=== PATIENT | male | born 1975 ===

== ENCOUNTER 2016-07-13 21:19 | Inpatient (IN) | payer MEDICAID ==
--- NOTE | 2016-07-13 21:50 | ED PDOC ---
HPI: CCC, URI, Sore Throat Time Seen by Provider: 07/13/16 21:38 Chief Complaint (Nursing): ENT Problem Chief Complaint (Provider): epistaxis History Per: Patient Additional Complaint(s): pt w/ hx poorly controlled HTN presents w/ 3h nose bleed from R nare. denies fall, trauma, or URI sx. no h/a, dizziness, blurred vision, cp, sob, palp, dyspnea, easy bruising, numbness, weakness to extremities. states he has been without meds for several weeks because he has not seen pmd. denies asa or blood thinners. Past Medical History Reviewed: Historical Data, Nursing Documentation, Vital Signs Vital Signs: Last Vital Signs Temp 98.2 F 07/13/16 21:22 Pulse 97 H 07/13/16 22:35 Resp 16 07/13/16 22:35 BP 191/113 H 07/13/16 22:35 Pulse Ox 99 07/13/16 23:34 - Medical History PMH: HTN - Family History Family History: States: No Known Family Hx - Social History Current smoker - smoking cessation education provided: No Alcohol: None Drugs: Denies - Home Medications Home Medications: Ambulatory Orders Medication Instructions Recorded No Known Home Med 07/13/16 - Allergies Allergies/Adverse Reactions: Allergies Allergy/AdvReac Type Severity Reaction Status Date / Time No Known Allergies Allergy Verified 07/13/16 21:22 Review of Systems ROS Statement: Except As Marked, All Systems Reviewed And Found Negative ENT: Negative for: Nose Pain, Nose Discharge, Nose Congestion Physical Exam - Reviewed Nursing Documentation Reviewed: Yes Vital Signs Reviewed: Yes - Physical Exam Appears: Positive for: Non-toxic, Uncomfortable Head Exam: Positive for: ATRAUMATIC, NORMAL INSPECTION, NORMOCEPHALIC Skin: Positive for: Normal Color, Warm, DRY Eye Exam: Positive for: EOMI, Normal appearance, PERRL ENT: Positive for: Other (large clot R nare. no apparent bleeding after clot removal. blood tinged teeth and tongue. no blood in post pharynx.) Neck: Positive for: Normal, Painless ROM Cardiovascular/Chest: Positive for: Regular Rate, Rhythm Respiratory: Positive for: CNT, Normal Breath Sounds Gastrointestinal/Abdominal: Positive for: Normal Exam, Bowel Sounds, Soft. Negative for: Tenderness Extremity: Positive for: Other (AV shunt L wrist w/ palpable thrill) Neurologic/Psych: Positive for: Alert, assembly machine set up mechanic II-XII, Oriented, Gait (steady). Negative for: Motor/Sensory Deficits - Laboratory Results Result Diagrams: 07/13/16 22:18 07/13/16 22:18 - ECG O2 Sat by Pulse Oximetry: 99 Medical Decision Making Medical Decision Making: ekg nsr at 95. prolonged QT. critical labs show BUN/creatinine largely elevated. pt is uremic, acidotic w/ bleeding diasthesis. likely acute on chronic renal failure. bleeding controlled with nasal packing. call out to pt' s plugger man Dr. Mckeon. spoke with Dr. Egan who will admit pt to ICU pending dialysis. 2350 BP 179/100 after first dose labetolol. spoke with Dr. Cook for Dr. Mckeon. agrees with repeat Labetolol and amp of bicarb as ordered. will arrange dialysis in AM as potassium is normal at this point. Procedures - Additional Procedures Progress: nasal packing performed in seated position. 7.5cm rhinorocket soaked in sterile water and inserted to R nare. 5cc air insuflated. pt tolerated well. no complications. bleeding controlled. Disposition - Clinical Impression Clinical Impression: Acute on chronic renal failure, Uremia, Epistaxis, Hypertensive emergency - Patient ED Disposition Is Patient to be Admitted: Yes - Disposition Disposition Time: 23:58 Condition: CRITICAL - Pt Status Changed To: Hospital Disposition Of: Inpatient - Admit Certification Admit to Inpatient:: After my assessment, the patient will require hospitalization for at least two midnights. This is because of the severity of symptoms shown, intensity of services needed, and/or the medical risk in this patient being treated as an outpatient. - POA Present On Arrival: None
[2016-07-13] MEDS ORDERED: Labetalol 5 mg/ml Inj 20ML IVP STA ×2 (22:24→23:34)
[2016-07-13 22:31] LABS: ALB/GLOB RATIO 1.3 (1.0-2.1); ALKALINE PHOSPHATASE 62 U/L (38-126); ALT/SGPT 29 U/L (21-72); AST/SGOT 25 U/L (17-59); BILIRUBIN,TOTAL 0.4 mg/dl (0.2-1.3); CALCIUM 7.1 mg/dL (8.4-10.2); CHLORIDE 109 mmol/L (98-107); GLUCOSE,RANDOM 88 mg/dL (75-110); PARTIAL THROMBOPLASTIN TIME 31.9 Seconds (25.6-37.1); POTASSIUM 4.3 MMOL/L (3.6-5.0); SODIUM 140 mmol/l (132-148)
[2016-07-13 22:35] LABS: CARBON DIOXIDE < 5 mmol/L (22-30)
[2016-07-13 22:41] LABS: GFR AFRICAN-AMERICAN 3
[2016-07-13 22:45] LABS: BLOOD UREA NITROGEN 154 mg/dl (9-20)
[2016-07-13 22:51] LABS: BASO # 0.1 K/uL (0.0-0.2); BASO % 0.7 % (0.0-2.0); EOS # 0.1 K/uL (0.0-0.7); EOS % 1.1 % (0.0-4.0); HEMATOCRIT 25.5 % (35.0-51.0); LYMPH # 0.9 K/uL (1.0-4.3); LYMPH % 10.9 % (20.0-40.0); MEAN CELL VOLUME 89.6 fl (80.0-94.0); MEAN CORPUSCULAR HEMOGLOBIN 30.1 pg (27.0-31.0); MEAN CORPUSCULAR HGB CONC 33.5 g/dL (33.0-37.0); MEAN PLATELET VOLUME 10.1 fl (7.2-11.7); MONO # 0.8 K/uL (0.0-0.8); MONO % 9.8 % (0.0-10.0); NEUT # 6.6 K/uL (1.8-7.0); NEUT % 77.5 % (50.0-75.0); RED CELL DISTRIBUTION WIDTH 14.4 % (11.5-14.5); WHITE BLOOD COUNT 8.5 K/uL (4.8-10.8)
[2016-07-13 23:06] LABS: ABG ALLEN TEST YES; ARTERIAL BLOOD GAS HCO3 8.3 mmol/L (21-28); ARTERIAL BLOOD GAS O2 CAPACITY 11.7 mL/dL (16-24); ARTERIAL BLOOD GAS O2 CONTENT 11.6 ML/dL (15-23); ARTERIAL BLOOD GAS PH 7.15 (7.35-7.45); ARTERIAL BLOOD GAS PO2 159 mm/Hg (80-100); ARTERIAL BLOOD HGB O2 SAT 95.3 % (95.0-98.0); HHB 0.8 % (0.0-5.0); METHEMOGLOBIN 2.9 % (0.0-3.0)
[2016-07-13] MEDS ORDERED: Sodium Bicarbonate 7.5% (0.9 MEQ/ML) 50ML INJ IV ONE (23:34)
--- NOTE | 2016-07-14 00:18 | CP.PCM.HP ---
History of Present Illness - History of Present Illness History of Present Illness: PCP: None Uc Architect: Dr Mckeon Chief complaint: Right nose bleed HPI: 41 years old male with hx of HTN and CKD with left AV fistula placed 2 years prior because of Chronic Kidney disease. He comes with a 3 hour hx of bleeding from the right nares. In the ED a right nasal was packed packing. His blood pressure was 210/102mmHg, Lab results showed results BUN 154mg/dl and Creatinine 18, he was also found to be Acidotic with a Bicarb of 5. The patient referred Nocturia, SOB on exertion, Some chest pressure, But no trauma. PMH: HTN; CKD PSH: A-V Fistula at the left wrist SH: Former Smoker; Quit Alcohol > 5years ago; No illegal drug use; Live alone; Works in food preparation FH: no known family hx Allergies: NKDA Present on Admission - Present on Admission Any Indicators Present on Admission: No History of DVT/PE: No History of Uncontrolled Diabetes: No Urinary Catheter: No Decubitus Ulcer Present: No Review of Systems - Constitutional Constitutional: absent: Anorexia, Chills, Fatigue, Fever, Headache - EENT Eyes: Requires Corrective Lenses. absent: Blurred Vision, Floaters, Photophobia , Sees Flashes Ears: absent: Decreased Hearing, Ear Discharge, Ear Pain, Tinnitus Nose/Mouth/Throat: Epistaxis, Sore Throat. absent: Sinus Pain, Sinus Pressure - Cardiovascular Cardiovascular: Chest Pain, Dyspnea. absent: Edema - Respiratory Respiratory: Cough, Dyspnea. absent: Wheezing, Chest Congestion - Gastrointestinal Gastrointestinal: absent: Constipation, Diarrhea, Nausea, Vomiting - Genitourinary Genitourinary: Nocturia, Freq UTI. absent: Dysuria, Flank Pain, Hematuria - Musculoskeletal Musculoskeletal: absent: Back Pain, Muscle Weakness, Myalgias - Integumentary Integumentary: absent: Pruritus, Rash, Skin Ulcer, Sores, Striae, Swelling - Neurological Neurological: absent: Confusion, Focal Weakness, Weakness - Psychiatric Psychiatric: absent: Anxiety, Depression, Panic Attacks - Endocrine Endocrine: absent: Palpitations, Polydipsia, Polyphagia, Polyuria - Hematologic/Lymphatic Hematologic: absent: Easy Bleeding, Easy Bruising Past Patient History - Past Medical History & Family History Past Medical History?: Yes - Past Social History Smoking Status: Former Smoker Chewing Tobacco Use: No Cigar Use: No Alcohol: None Drugs: Denies Home Situation {Lives}: Alone - CARDIAC Hx Hypertension: Yes - PULMONARY Hx Respiratory Disorders: No - NEUROLOGICAL Hx Neurological Disorder: No - HEENT Hx HEENT Problems: No - RENAL Hx Renal Failure: Yes Other/Comment: AV fistula left wrist x 2 years- not being used yet - ENDOCRINE/METABOLIC Hx Endocrine Disorders: No - HEMATOLOGICAL/ONCOLOGICAL Hx Blood Disorders: No Hx Leukemia: No - INTEGUMENTARY Hx Dermatological Problems: No - MUSCULOSKELETAL/RHEUMATOLOGICAL Hx Musculoskeletal Disorders: No - GASTROINTESTINAL Hx Gastrointestinal Disorders: No - GENITOURINARY/GYNECOLOGICAL Hx Genitourinary Disorders: No - PSYCHIATRIC Hx Psychophysiologic Disorder: No Hx Substance Use: No - SURGICAL HISTORY Hx Vascular Access Device: Yes (left wrist) - ANESTHESIA Hx Anesthesia: Yes Hx Anesthesia Reactions: No Meds Allergies/Adverse Reactions: Allergies Allergy/AdvReac Type Severity Reaction Status Date / Time No Known Allergies Allergy Verified 07/13/16 21:22 Physical Exam - Constitutional Appears: No Acute Distress - Head Exam Head Exam: ATRAUMATIC, NORMAL INSPECTION, NORMOCEPHALIC - Eye Exam Eye Exam: EOMI, Normal appearance Pupil Exam: NORMAL ACCOMODATION, PERRL - ENT Exam ENT Exam: Normal External Ear Exam, Normal Oropharynx Additional comments: Right nostrel with a Nasal Bulb for Epistaxis - Neck Exam Neck exam: Positive for: Full Rom, Normal Inspection. Negative for: Lymphadenopathy, Tenderness - Respiratory Exam Respiratory Exam: Clear to Auscultation Bilateral. absent: Rales, Rhonchi, Wheezes - Cardiovascular Exam Cardiovascular Exam: Gallop, REGULAR RHYTHM, RRR, +S1, +S2. absent: JVD - GI/Abdominal Exam GI & Abdominal Exam: Normal Bowel Sounds, Soft. absent: Organomegaly, Tenderness - Rectal Exam Rectal Exam: Deferred - Extremities Exam Extremities exam: Positive for: full ROM, normal capillary refill, normal inspection. Negative for: pedal edema - Back Exam Back exam: NORMAL INSPECTION. absent: CVA tenderness (L), CVA tenderness (R) - Neurological Exam Neurological exam: Alert, CN II-XII Intact, Oriented x3, Reflexes Normal - Psychiatric Exam Psychiatric exam: Normal Affect, Normal Mood - Skin Skin Exam: Dry, Intact, Normal Color, Warm Results - Vital Signs Recent Vital Signs: Last Vital Signs Temp 98.2 F 07/13/16 21:22 Pulse 85 06/02/17 00:00 Resp 16 07/14/16 00:00 BP 169/109 H 07/14/16 00:00 Pulse Ox 99 07/14/16 00:00 - Labs Result Diagrams: 07/13/16 22:18 07/13/16 22:18 - EKG Data EKG comments: NSR 96/min - Imaging and Cardiology Chest x-ray Status: Report reviewed by me Additional comment: Cardiomegaly No infiltrate Assessment & Plan - Assessment and Plan (Free Text) Assessment: #. Acute on chronic Kidney disease #. hypertensive Urgency #. Anemia #. Metabolic Acidosis #. Epistaxis Plan: 41 years old male with hx of HTN and CKD with left AV fistula placed 2 years prior, because of Chronic Kidney disease, comes with a 3 hour hx of bleeding from the right nares. In the ED his blood pressure was 210/102mmHg, BUN 154mg/dl and Creatinine 18, and he was Acidotic. #. Acute on chronic Kidney disease - Consult Dr Cook Nephrology covering for Dr Nobles/ for Dialysis - IV fluid at 100mls/hr #. Hypertensive Urgency - Patient received Labetalol 20mg IV twice in the ED. - Continue treatment with Oral labetalol 200mg BID/ amlodipine 10mg Stat and daily/ Clonidine 2mg Po BID #. Anemia of chronic kidney disease - follow Iron panel/ Vitamin B2 and folate - Follow HB #. Metabolic Acidosis due to the Renal failure - One ampule of Sodium Bicarbonate given in ED - IV Fluid with 2Amps of Sodium Bicarbonate at 100mls/hr #. Epistaxis caused by the elevated Blod pressure - The right nostres has the Packing - Treat the HTN #. DVT prophylaxis with SCD. Heparin on hold because of the epistaxis #. Code Status: Full - Date & Time Date: 07/14/16 Time: 00:17
[2016-07-14] MEDS ORDERED: Labetalol 5 mg/ml Inj 20ML IVP STA (00:55)
[2016-07-14] MEDS ORDERED: Sodium Chloride 0.9% 1,000 ML IV SCH (01:15)
[2016-07-14] MEDS: Sodium Bicarbonate 100 MEQ in Sodium Chloride 0.45% 1,000 ML IV SCH ×3 (02:12→22:59)
[2016-07-14 04:55] LABS: VENOUS BLOOD GAS BASE EXCESS -20.3 mmol/L (0.0-2.0); VENOUS BLOOD GAS PCO2 20 mmHg (40-60); VENOUS BLOOD PH 7.14 (7.32-7.43)
[2016-07-14 05:42] LABS: CALCIUM 6.9 mg/dL (8.4-10.2)
[2016-07-14 05:58] LABS: IRON 78 ug/dL (49-181)
--- NOTE | 2016-07-14 08:43 | CARD ---
APPROVED REPORT EKG Measurement Heart [id number] <Conclusion> Normal sinus rhythm Prolonged QT Abnormal ECG
--- NOTE | 2016-07-14 10:49 | RAD ---
HISTORY: Hypertension COMPARISON: 06/10/2013. FINDINGS: LUNGS: No active pulmonary disease. PLEURA: No significant pleural effusion identified, no pneumothorax apparent. CARDIOVASCULAR: No radiographic findings to suggest acute or significant cardiovascular disease. OSSEOUS STRUCTURES: No significant abnormalities. VISUALIZED UPPER ABDOMEN: Normal. OTHER FINDINGS: None. IMPRESSION: No active disease. No significant interval change compared to the prior examination(s).
--- NOTE | 2016-07-14 17:14 | CP.CCUPN ---
CCU Subjective - Physician Review Subjective (Free Text): CONCRETER PROGRESS NOTE Patient examined, interim events reviewed, discussed with PMD: 41M with PMH HTN, non-compliant CKD, admitted with c/o nose bleed and uncontrolled BP 210/100. In ER, nasal trumpet placed into R nares for control of bleeding, found to have uremic range BUN and concurrent LUE AVF in place with good bruit and thrill, transferred to ICU for first HD, and BP control. Presently awake, and alert, non-distressed, denies any headaches, N/V, dizziness , vertigo, facial pain, no focal weakness, visual changes, chest discomfort, SOB , palpitations. Afebrile, no fever spikes; BP 162/82 HR 82, 97% SPO2 on RA Allergies: NKDA ROS: as above, no other pertinent negs or positives on 10 system review. PMFSH: all nursing and historical notes reviewed, no new pertinent data relevant to current problems. No other distress noted: EXAM- HEENT: no icterus, pupils equal and reactive NECK: no visible JVD, supple, carotids equal upstroke bilat/no bruits CHEST: decreased BS bases, no wheezes HEART: regular, distant, S1S2, no murmur audible, no rubs. ABD: soft, no increased distention, no focal tenderness, no HSM. BS hypoactive , EXT: no peripheral/ digital cyanosis, no calf tenderness or palpable cords, distal pulses intact and symmetrical, LUE AVF. NEURO: no gross focal motor deficits SKIN: no rashes LABS: WBC= 8.5 HGB= 8.5 PLTs= 196K Na= 142 K= 4.0 HCO3= 6 BUN/Cr= 160/18.3 BS= 82 MAJOR PROBLEMS NOW: 1. 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 Uncontrolled HTN 3. Chronic Disease Anemia PLAN: 1. Patient realizes need now for acute HD, arrangements being made. 2. STAT anti-HTN meds given in ER noted, now remains on triple therapy with labetalol, Clonidine and Amlodipine. Expect BP to be lowered more post HD today. 3. Once MAP down to 100-110, and has tolerated HD, will transfer to Step down bed. 4. No need for PRBCs at this time.
[2016-07-14 17:36] LABS: FOLATE 6.5 ng/mL
[2016-07-14] MEDS ORDERED: Labetalol 5mg/ml (4ml) IVP PRN (22:25)
[2016-07-14] MEDS: Labetalol 5 mg/ml Inj 20ML IVP PRN (23:00)
[2016-07-15] MEDS: Labetalol 5 mg/ml Inj 20ML IVP PRN (06:07)
[2016-07-15 06:55] LABS: MEAN CELL VOLUME 86.6 fl (80.0-94.0); MEAN CORPUSCULAR HEMOGLOBIN 28.9 pg (27.0-31.0); MEAN CORPUSCULAR HGB CONC 33.3 g/dL (33.0-37.0); RED CELL DISTRIBUTION WIDTH 13.9 % (11.5-14.5); WHITE BLOOD COUNT 7.3 K/uL (4.8-10.8)
[2016-07-15 07:22] LABS: ALB/GLOB RATIO 1.3 (1.0-2.1); BILIRUBIN,TOTAL 0.5 mg/dl (0.2-1.3); CALCIUM 6.8 mg/dL (8.4-10.2); TOTAL PROTEIN 6.6 G/DL (6.3-8.2)
--- NOTE | 2016-07-15 07:36 | CP.PCM.CON ---
History of Present Illness - History of Present Illness History of Present Illness: REASONS FOR CONSULT : ADVANCED CKD IN NEED FOR URGENT HD SEVERE MET ACIDOSIS WITH BICARB 6 PT IS WELL KNOWN TO US WHO HAS BEEN PREPARED FOR HD HPI: 32M with PMHxof ESRD, Dialysis, HTN, asthma, and cardiomyopathy presented to the ER due to left knee pain. He states that he was discharged on Sunday from [facility] [place] and was told that he had ruptured both of his patellar tendons. He was told to follow up with Dr. Medina as an outpatient for his surgery and was given pain medications prior to discharge. He states that on Sunday he was icing his knees to help with the pain. He states that he had to take off his knee braces to ice them and he believes that he didn't tighten the left one correctly. He then states that later that day he began to have severe pain even though he barely walked or put weight on his knees. Sunday he states he was bed bound due to the pain and thus, missed his Sunday scheduled Dialysis. He reports the pain as localized to the knees bilaterally with the left being more painful. Patient is scheduled outpatient surgery next week with Dr Medina. Denies Chest pain, sob, palpitations, fever, chills weakness, numbness, tingling, nausea or vomiting. PMHx- ESRD, Dialysis, HTN, asthma, and cardiomyopathy PSHx- AICD, Fistula on left arm for dialysis Meds: As per MAR Allergies- NKDA Soc Hx- denies tobacco, alcohol , and drug use. Lives with [facility], [place] and works in [employer] F[employer]x- HTN Past Patient History - Past Medical History & Family History Past Medical History?: Yes - Past Social History Smoking Status: Never Smoked - CARDIAC Hx Cardiac Disorders: Yes Hx Hypertension: Yes - PULMONARY Hx Respiratory Disorders: No - NEUROLOGICAL Hx Neurological Disorder: No - HEENT Hx HEENT Problems: No - RENAL Hx Renal Failure: Yes Other/Comment: AV fistula left wrist x 2 years- not being used yet - ENDOCRINE/METABOLIC Hx Endocrine Disorders: No - HEMATOLOGICAL/ONCOLOGICAL Hx Blood Disorders: No - INTEGUMENTARY Hx Dermatological Problems: No - MUSCULOSKELETAL/RHEUMATOLOGICAL Hx Musculoskeletal Disorders: No Hx Falls: No - GASTROINTESTINAL Hx Gastrointestinal Disorders: No - GENITOURINARY/GYNECOLOGICAL Hx Genitourinary Disorders: No - PSYCHIATRIC Hx Psychophysiologic Disorder: No Hx Substance Use: No - SURGICAL HISTORY Hx Surgeries: No - ANESTHESIA Hx Anesthesia: No Hx Anesthesia Reactions: No Hx Malignant Hyperthermia: No Has any member of the family had a problem w/ anesthesia?: No Meds Allergies/Adverse Reactions: Allergies Allergy/AdvReac Type Severity Reaction Status Date / Time No Known Allergies Allergy Verified 07/13/16 21:22 - Medications Medications: Current Medications Amlodipine Besylate (Norvasc) 10 mg PO DAILY [facility] Last Admin: 07/14/16 11:00 Dose: 10 mg Clonidine HCl (Catapres) 0.2 mg PO BID [facility] Last Admin: 07/14/16 19:02 Dose: 0.2 mg Labetalol HCl (Trandate) 200 mg PO BID [facility] Last Admin: 07/14/16 19:03 Dose: 200 mg Labetalol HCl (Trandate) 20 mg IVP Q6H PRN PRN Reason: SBP > 140 Last Admin: 07/15/16 06:07 Dose: 20 mg Pneumococcal Polyvalent Vaccine (Pneumovax 23 Vaccine) 0.5 ml IM .ONCE ONE Stop: 07/15/16 09:01 Results - Vital Signs Recent Vital Signs: Last Vital Signs Temp 98.8 F 07/15/16 04:00 Pulse 82 07/15/16 06:07 Resp 11 L 07/15/16 06:00 BP 163/87 H 07/15/16 06:07 Pulse Ox 96 07/15/16 06:00 - Labs Result Diagrams: 07/15/16 05:30 07/14/16 05:05 Labs: Laboratory Results - last 24 hr 07/14/16 07/14/16 07/15/16 05:05 07:20 05:30 WBC 7.3 RBC 2.54 L Hgb 7.3 L Hct 22.0 L MCV 86.6 D MCH 28.9 MCHC 33.3 RDW 13.9 Plt Count 178 Folate 6.5 Urine Opiates Screen Negative Urine Methadone Screen Negative Ur Barbiturates Screen Negative Ur Phencyclidine Scrn Negative Ur Amphetamines Screen Negative U Benzodiazepines Scrn Negative U Oth Cocaine Metabols Negative U Cannabinoids Screen Negative Assessment & Plan - Assessment and Plan (Free Text) Assessment: ADVANCED CKD WITH SEVERE ACIDOSIS . WILL START HD ANEMIA .. WILL START EPO C//O CURRENT CARE CASE D/W METER TESTER POLYPHASE - Date & Time Date: 07/14/16 Time: 13:00
[2016-07-15] MEDS ORDERED: Ergocalciferol 50,000 Intl Units Cap PO SCH (07:45)
[2016-07-15 08:15] LABS: POTASSIUM 2.5 MMOL/L (3.6-5.0)
[2016-07-15] MEDS ORDERED: Pneumococcal 23-Valent Vaccine IM ONE (09:00)
[2016-07-15] MEDS: Sevelamer Carb 0.8 gm/Packet PO SCH ×3 (09:18→17:12)
--- NOTE | 2016-07-15 09:48 | CP.PCM.PN ---
Subjective - Date & Time of Evaluation Date of Evaluation: 07/15/16 Time of Evaluation: 09:30 - Subjective Subjective: Patient seen and examined bedside. Feeling well. Denies any CP, SOB, palpitations. BP better controlled but still wlwvated 158/88 HR 80 afebrile O2Sat 96 % in RA WBC 7 Hgb 7.3 BUN/Cr 114/13 K 2.5 Na 142 No acute issues overnight Objective - Vital Signs/Intake and Output Vital Signs (last 24 hours): Temp Pulse Resp BP Pulse Ox 98.8 F 80 13 158/88 H 96 07/15/16 08:00 07/15/16 09:16 07/15/16 08:00 07/15/16 09:16 07/15/16 08:00 Intake and Output: 07/15/16 07/15/16 06:59 18:59 Intake Total 1208 Output Total 2500 Balance -1292 - Medications Medications: Current Medications Amlodipine Besylate (Norvasc) 10 mg PO DAILY [facility] Last Admin: 07/15/16 09:16 Dose: 10 mg Clonidine HCl (Catapres) 0.2 mg PO BID [facility] Last Admin: 07/15/16 09:14 Dose: 0.2 mg Ergocalciferol (Drisdol 50,000 Intl Units Cap) 1 cap PO Q7D [facility] Last Admin: 07/15/16 09:15 Dose: 1 cap Potassium Chloride (Potassium Cl 10meq/50ml Sterile Water) 50 mls @ 50 mls/hr IVPB Q1 [facility] Stop: 07/15/16 13:59 Labetalol HCl (Trandate) 200 mg PO BID [facility] Last Admin: 07/14/16 19:03 Dose: 200 mg Labetalol HCl (Trandate) 20 mg IVP Q6H PRN PRN Reason: SBP > 140 Last Admin: 07/15/16 06:07 Dose: 20 mg Sevelamer Carbonate (Renvela) 0.8 gm PO TIDWM [facility] Last Admin: 07/15/16 09:18 Dose: 0.8 gm Vitamin B Complex/Vit C/Folic Acid (Nephro-Rickie) 1 tab PO DAILY [facility] - Labs Labs: 07/15/16 05:30 07/15/16 05:30 PT 11.9 Seconds (9.8-13.1) 07/13/16 22:18 INR 1.1 (0.9-1.2) 07/13/16 22:18 APTT 31.9 Seconds (25.6-37.1) 07/13/16 22:18 - Constitutional Appears: Non-toxic, No Acute Distress - Head Exam Head Exam: ATRAUMATIC, NORMAL INSPECTION, NORMOCEPHALIC Additional comments: right naris packing in place - Eye Exam Eye Exam: EOMI, Normal appearance, PERRL Pupil Exam: NORMAL ACCOMODATION - ENT Exam ENT Exam: Mucous Membranes Moist, Normal Exam - Neck Exam Neck Exam: Full ROM, Normal Inspection - Respiratory Exam Respiratory Exam: Clear to Ausculation Bilateral, NORMAL BREATHING PATTERN. absent: Rales, Rhonchi, Wheezes - Cardiovascular Exam Cardiovascular Exam: REGULAR RHYTHM, RRR, +S1, +S2. absent: JVD - GI/Abdominal Exam GI & Abdominal Exam: Soft, Normal Bowel Sounds. absent: Distended, Guarding, Tenderness, Rebound - Rectal Exam Rectal Exam: Deferred - Extremities Exam Extremities Exam: Full ROM, Normal Capillary Refill, Normal Inspection. absent : Pedal Edema Additional comments: left forearm AVF in place - Back Exam Back Exam: NORMAL INSPECTION - Neurological Exam Neurological Exam: Alert, Awake, CN II-XII Intact, Oriented x3 - Psychiatric Exam Psychiatric exam: Normal Affect, Normal Mood - Skin Skin Exam: Dry, Intact, Normal Color, Warm Assessment and Plan - Assessment and Plan (Free Text) Assessment: 41 years old male with hx of HTN and CKD with left AV fistula placed 2 years prior, because of Chronic Kidney disease, comes with a 3 hour hx of bleeding from the right nares. In the ED his blood pressure was 210/102mmHg, BUN 154mg/dl and Creatinine 18, and he was Acidotic with HCO3 5. Patient admitted to ICU and started on HD . At present doing better, BP still elevated . For HD today 1. Acute on chronic Kidney disease Had emergent HD yesterday and will receive another session today Consult with Dr Joyce marquez . Monitor Elevctrolyte 2. Hypertensive Urgency not compliant with mediations. Has not been taking his Po meds since he lost insurance 2 years ago BP better controlled 158/88 Continue labetalol 200mg BID/ amlodipine 10mg Stat and daily/ Clonidine 2mg Po BID 3. Anemia of chronic kidney disease Hgb 7.3 Started on epopoetin 4. Metabolic Acidosis due to the Renal failure Given Sodium Bicarbonate in ED and placed on th ebicarb drip on HD 5.Epistaxis most likely secondary to elevated Blood pressure The right nostril has the Packing Treat the HTN 6. Hypoklaemia K 2.5 Will replace for now Nephrology to adjust the HD 7. DVT prophylaxis SCD. Heparin on hold because of the epistaxis and anemia Code Status: Full
[2016-07-15] MEDS: Potassium CL 10 MEQ/50 ML 50 ML IVPB SCH ×4 (10:28→15:10)
--- NOTE | 2016-07-15 14:27 | CP.CCUPN ---
CCU Subjective - Physician Review Subjective (Free Text): DELINEATOR PROGRESS NOTE Patient examined, interim events reviewed, discussed with PMD: Presently awake, and alert, non-distressed, denies any headaches, N/V, dizziness , vertigo, facial pain, no focal weakness, visual changes, chest discomfort, SOB , palpitations. SBP levels down to 130-150s. Afebrile, no fever spikes; BP 162/82 HR 82, 97% SPO2 on RA ROS: as above, no other pertinent negs or positives on 10 system review. PMFSH: all nursing and historical notes reviewed, no new pertinent data relevant to current problems. No other distress noted: EXAM- HEENT: no icterus, pupils equal and reactive NECK: no visible JVD, supple, carotids equal upstroke bilat/no bruits CHEST: decreased BS bases, no wheezes HEART: regular, distant, S1S2, no murmur audible, no rubs. ABD: soft, no increased distention, no focal tenderness, no HSM. BS hypoactive , EXT: no peripheral/ digital cyanosis, no calf tenderness or palpable cords, distal pulses intact and symmetrical, LUE AVF. NEURO: no gross focal motor deficits SKIN: no rashes LABS: WBC= 7.3 HGB= 7.3 PLTs= 178K Na= 142 K= 2.5 HCO3= 20 BUN/Cr= 114/13.1 BS= 108 MAJOR PROBLEMS NOW: 1. CKD stage V progressing to ARF 2. Uncontrolled HTN 3. Chronic Disease Anemia PLAN: 1. Repeat HD again today. 2. K supplemented, check Mag / Phos levels. 3. BP levls improved on current regimen, watch for excessive reduction levels. [facility]
[2016-07-15] MEDS: Multivitamin Vitamin B Complex (Nephro-Vite) Tab PO SCH (17:11)
[2016-07-16 07:07] LABS: HEMATOCRIT 22.8 % (35.0-51.0); MEAN CELL VOLUME 88.5 fl (80.0-94.0); MEAN CORPUSCULAR HEMOGLOBIN 28.8 pg (27.0-31.0); MEAN CORPUSCULAR HGB CONC 32.6 g/dL (33.0-37.0); RED CELL DISTRIBUTION WIDTH 14.1 % (11.5-14.5); WHITE BLOOD COUNT 9.2 K/uL (4.8-10.8)
[2016-07-16 07:19] LABS: CALCIUM 6.7 mg/dL (8.4-10.2); POTASSIUM 2.8 MMOL/L (3.6-5.0)
--- NOTE | 2016-07-16 07:23 | CP.PCM.PN ---
Subjective - Date & Time of Evaluation Date of Evaluation: 07/16/16 Time of Evaluation: 07:30 - Subjective Subjective: Patient seen by bedside. Feeling well. Denies any CP ,, SOB, palpitations. Hemodynamically stable, afebrile BP 118/42 HR 73 O2 Sat 96 % on 2 L O2 No acute issues overnight Had HD yesterday K 2.8 BUN/Cr 78/10 Hgb 7.4 WBC 9.2 Objective - Vital Signs/Intake and Output Vital Signs (last 24 hours): Temp Pulse Resp BP Pulse Ox 98.6 F 78 14 161/84 H 92 L 07/16/16 06:00 07/16/16 06:00 07/16/16 06:00 07/16/16 06:00 07/16/16 06:00 Intake and Output: 07/16/16 07/16/16 06:59 18:59 Intake Total 1650 Output Total 1000 Balance 650 - Medications Medications: Current Medications Amlodipine Besylate (Norvasc) 10 mg PO DAILY [facility] Last Admin: 07/15/16 09:16 Dose: 10 mg Clonidine HCl (Catapres) 0.2 mg PO BID [facility] Last Admin: 07/15/16 17:11 Dose: 0.2 mg Ergocalciferol (Drisdol 50,000 Intl Units Cap) 1 cap PO Q7D [facility] Last Admin: 07/15/16 09:15 Dose: 1 cap Labetalol HCl (Trandate) 200 mg PO BID [facility] Last Admin: 07/15/16 19:49 Dose: 200 mg Labetalol HCl (Trandate) 20 mg IVP Q6H PRN PRN Reason: SBP > 140 Last Admin: 07/15/16 06:07 Dose: 20 mg Sevelamer Carbonate (Renvela) 0.8 gm PO TIDWM [facility] Last Admin: 07/15/16 17:12 Dose: 0.8 gm Vitamin B Complex/Vit C/Folic Acid (Nephro-Rickie) 1 tab PO DAILY [facility] Last Admin: 07/15/16 17:11 Dose: 1 tab - Labs Labs: 07/16/16 05:30 07/15/16 05:30 PT 11.9 Seconds (9.8-13.1) 07/13/16 22:18 INR 1.1 (0.9-1.2) 07/13/16 22:18 APTT 31.9 Seconds (25.6-37.1) 07/13/16 22:18 - Constitutional Appears: Non-toxic, No Acute Distress - Head Exam Head Exam: ATRAUMATIC, NORMAL INSPECTION, NORMOCEPHALIC - Eye Exam Eye Exam: EOMI, Normal appearance, PERRL - ENT Exam ENT Exam: Mucous Membranes Moist, Normal Exam Additional comments: packing to right nare - Neck Exam Neck Exam: Full ROM, Normal Inspection - Respiratory Exam Respiratory Exam: Clear to Ausculation Bilateral. absent: Rales, Rhonchi, Wheezes - Cardiovascular Exam Cardiovascular Exam: REGULAR RHYTHM, RRR, +S1, +S2. absent: JVD - GI/Abdominal Exam GI & Abdominal Exam: Soft, Normal Bowel Sounds. absent: Distended, Guarding, Tenderness, Rebound - Rectal Exam Rectal Exam: Deferred - Extremities Exam Extremities Exam: Full ROM, Normal Capillary Refill, Normal Inspection Additional comments: left wrist AVF - Back Exam Back Exam: NORMAL INSPECTION - Neurological Exam Neurological Exam: Alert, Awake, CN II-XII Intact, Oriented x3 - Psychiatric Exam Psychiatric exam: Normal Affect, Normal Mood - Skin Skin Exam: Dry, Intact, Normal Color, Warm Assessment and Plan - Assessment and Plan (Free Text) Assessment: 41 years old male with hx of HTN and CKD with left AV fistula placed 2 years prior, because of Chronic Kidney disease, comes with a 3 hour hx of bleeding from the right nares. In the ED his blood pressure was 210/102mmHg, BUN 154mg/dl and Creatinine 18, and he was Acidotic with HCO3 5. Patient admitted to ICU and started on HD . At present doing better, BP better controlled .Had HD yesterday and will need to be scheduled as outpatient MWF 1. Acute on chronic Kidney disease started on HD . last session yesterday Justin[facility] . Monitor Electrolytes 2. Hypertensive Urgency not compliant with mediations. Has not been taking his Po meds since he lost insurance 2 years ago BP better controlled 118/42 Continue labetalol 200mg BID/ amlodipine 10mg Stat and daily/ Clonidine 2mg Po BID 3. Anemia of chronic kidney disease Hgb 7.4 Started on epopoetin no need for transfusion now 4. Metabolic Acidosis due to the Renal failure resolved was given Sodium Bicarbonate in ED and placed on the bicarb drip on HD 5.Epistaxis most likely secondary to elevated Blood pressure The right nostril has Packing in place Treat the HTN 6. Hypoklaemia K 2.8 Will replace with 6 runs KCL Nephrology to adjust the HD 7. DVT prophylaxis SCD. Heparin on hold because of the epistaxis and anemia Code Status: Full
--- NOTE | 2016-07-16 09:38 | CP.PCM.PN ---
Subjective - Date & Time of Evaluation Date of Evaluation: 07/15/16 Time of Evaluation: 14:00 - Subjective Subjective: SEEN ON RENAL F/U IN ICU SEEN ON HIS 2ND HD TREATMENT FEELS MUCH BETTER Objective - Vital Signs/Intake and Output Vital Signs (last 24 hours): Temp Pulse Resp BP Pulse Ox 98.2 F 73 17 118/42 L 96 07/16/16 07:59 07/16/16 07:59 07/16/16 07:59 07/16/16 07:59 07/16/16 07:59 Intake and Output: 07/16/16 07/16/16 06:59 18:59 Intake Total 1650 Output Total 1000 Balance 650 - Medications Medications: Current Medications Amlodipine Besylate (Norvasc) 10 mg PO DAILY [facility] Last Admin: 07/15/16 09:16 Dose: 10 mg Clonidine HCl (Catapres) 0.2 mg PO BID [facility] Last Admin: 07/15/16 17:11 Dose: 0.2 mg Ergocalciferol (Drisdol 50,000 Intl Units Cap) 1 cap PO Q7D [facility] Last Admin: 07/15/16 09:15 Dose: 1 cap Potassium Chloride (Potassium Cl 10meq/50ml Sterile Water) 50 mls @ 50 mls/hr IVPB Q1 [facility] Stop: 07/16/16 15:59 Labetalol HCl (Trandate) 200 mg PO BID [facility] Last Admin: 07/15/16 19:49 Dose: 200 mg Labetalol HCl (Trandate) 20 mg IVP Q6H PRN PRN Reason: SBP > 140 Last Admin: 07/15/16 06:07 Dose: 20 mg Sevelamer Carbonate (Renvela) 0.8 gm PO TIDWM [facility] Last Admin: 07/15/16 17:12 Dose: 0.8 gm Vitamin B Complex/Vit C/Folic Acid (Nephro-Rickie) 1 tab PO DAILY [facility] Last Admin: 07/15/16 17:11 Dose: 1 tab - Labs Labs: 07/16/16 05:30 07/16/16 05:30 PT 11.9 Seconds (9.8-13.1) 07/13/16 22:18 INR 1.1 (0.9-1.2) 07/13/16 22:18 APTT 31.9 Seconds (25.6-37.1) 07/13/16 22:18 Assessment and Plan - Assessment and Plan (Free Text) Assessment: ESRD ON HD M W F STARTING NEXT WEEK HTN .. C/O CURRENT BP MEDS NEEDS HD ( SPOT ) AN OUT PT
[2016-07-16] MEDS: Multivitamin Vitamin B Complex (Nephro-Vite) Tab PO SCH (10:04)
[2016-07-16] MEDS: Sevelamer Carb 0.8 gm/Packet PO SCH ×3 (10:06→17:17)
[2016-07-16] MEDS: Potassium CL 10 MEQ/50 ML 50 ML IVPB SCH ×6 (10:06→17:17)
[2016-07-17 05:28] LABS: HEMATOCRIT 21.9 % (35.0-51.0); MEAN CORPUSCULAR HEMOGLOBIN 29.6 pg (27.0-31.0); MEAN CORPUSCULAR HGB CONC 33.2 g/dL (33.0-37.0); RED CELL DISTRIBUTION WIDTH 14.4 % (11.5-14.5); WHITE BLOOD COUNT 8.8 K/uL (4.8-10.8)
[2016-07-17 05:30] LABS: CALCIUM 6.7 mg/dL (8.4-10.2); POTASSIUM 3.3 MMOL/L (3.6-5.0)
[2016-07-17] MEDS: Sevelamer Carb 0.8 gm/Packet PO SCH ×3 (08:37→17:20)
[2016-07-17] MEDS ORDERED: Pneumococcal 23-Valent Vaccine IM ONE (09:00)
[2016-07-17] MEDS ORDERED: Potassium Chloride 20 mEq ER Tab PO ONE (09:15)
--- NOTE | 2016-07-17 11:19 | CP.PCM.PN ---
Subjective - Date & Time of Evaluation Date of Evaluation: 07/17/16 Time of Evaluation: 10:30 - Subjective Subjective: No further epistaxis nasal pack removed - no bleeding after removal of pack denies CP no SOB no Headache no abd pain Sched for4 HD today - will transfuse pt with HD Pt signed consent for transfusion Objective - Vital Signs/Intake and Output Vital Signs (last 24 hours): Temp Pulse Resp BP Pulse Ox 98.4 F 77 16 127/76 96 07/17/16 07:43 07/17/16 10:00 07/17/16 10:00 07/17/16 10:00 07/17/16 10:00 Intake and Output: 07/17/16 07/17/16 06:59 18:59 Intake Total 370 240 Output Total 200 150 Balance 170 90 - Medications Medications: Current Medications Amlodipine Besylate (Norvasc) 10 mg PO DAILY [facility] Last Admin: 07/16/16 10:04 Dose: 10 mg Clonidine HCl (Catapres) 0.2 mg PO BID [facility] Last Admin: 07/16/16 17:18 Dose: 0.2 mg Ergocalciferol (Drisdol 50,000 Intl Units Cap) 1 cap PO Q7D [facility] Last Admin: 07/15/16 09:15 Dose: 1 cap Labetalol HCl (Trandate) 200 mg PO BID [facility] Last Admin: 07/16/16 17:17 Dose: 200 mg Labetalol HCl (Trandate) 20 mg IVP Q6H PRN PRN Reason: SBP > 140 Last Admin: 07/15/16 06:07 Dose: 20 mg Sevelamer Carbonate (Renvela) 0.8 gm PO TIDWM [facility] Last Admin: 07/17/16 08:37 Dose: 0.8 gm Vitamin B Complex/Vit C/Folic Acid (Nephro-Rickie) 1 tab PO DAILY [facility] Last Admin: 07/16/16 10:04 Dose: 1 tab - Labs Labs: 07/17/16 04:25 07/17/16 04:25 PT 11.9 Seconds (9.8-13.1) 07/13/16 22:18 INR 1.1 (0.9-1.2) 07/13/16 22:18 APTT 31.9 Seconds (25.6-37.1) 06/01/17 22:18 - Constitutional Appears: No Acute Distress - Head Exam Head Exam: NORMAL INSPECTION, NORMOCEPHALIC - Eye Exam Eye Exam: EOMI, Normal appearance, PERRL Pupil Exam: NORMAL ACCOMODATION - ENT Exam ENT Exam: Mucous Membranes Moist, Normal External Ear Exam - Neck Exam Neck Exam: Full ROM. absent: Meningismus - Respiratory Exam Respiratory Exam: NORMAL BREATHING PATTERN. absent: Respiratory Distress - Cardiovascular Exam Cardiovascular Exam: REGULAR RHYTHM, +S1, +S2 - GI/Abdominal Exam GI & Abdominal Exam: Soft, Normal Bowel Sounds. absent: Tenderness - Extremities Exam Extremities Exam: Full ROM, Normal Capillary Refill. absent: Calf Tenderness Additional comments: left wrist AVF fistula , + bruit - Back Exam Back Exam: Full ROM, NORMAL INSPECTION. absent: CVA tenderness (L), CVA tenderness (R), paraspinal tenderness - Neurological Exam Neurological Exam: Alert, Awake, CN II-XII Intact, Oriented x3 Neuro motor strength exam: Left Upper Extremity: 5, Right Upper Extremity: 5, Left Lower Extremity: 5, Right Lower Extremity: 5 - Psychiatric Exam Psychiatric exam: Normal Affect, Normal Mood - Skin Skin Exam: Dry, Normal Color, Warm Assessment and Plan - Assessment and Plan (Free Text) Assessment: 41 years old male with hx of HTN and CKD with left AV fistula placed 2 years prior, because of Chronic Kidney disease, comes with a 3 hour hx of bleeding from the right nares. In the ED his blood pressure was 210/102mmHg, BUN 154mg/dl and Creatinine 18, and he was Acidotic with HCO3 5. Patient admitted to ICU and started on HD . At present doing better, BP better controlled . Awaiting for Outpatient HD placement 1. End Stage Renal Disease Hx of CKD - worsened now requiring HD started on HD for Hemodialysis today awaiting Outpt HD placement Consult with Dr Cook Monitor Electrolytes 2. Hypertensive Urgency not compliant with mediations. Has not been taking his Po meds since he lost insurance 2 years ago BP better controlled 118/42 Continue labetalol 200mg BID/ amlodipine 10mg daily/ Clonidine 2mg Po BID 3. Anemia of chronic kidney disease Hgb 7. Started on epopoetin Transfuse 1 unit PRBC with HD 4. Metabolic Acidosis due to the Renal failure resolved was given Sodium Bicarbonate in ED and placed on the bicarb drip on HD 5.Epistaxis most likely secondary to elevated Blood pressure The right nostril has Packing in place - removed nasal pack today- no bleeding noted BP control 6. Hypokalemia replace with PO KCl Nephrology to adjust the HD 7. DVT prophylaxis SCD. Heparin on hold because of the epistaxis and anemia
[2016-07-17] MEDS: Multivitamin Vitamin B Complex (Nephro-Vite) Tab PO SCH (17:23)
--- NOTE | 2016-07-17 19:43 | CP.PCM.PN ---
Subjective - Date & Time of Evaluation Date of Evaluation: 07/17/16 Time of Evaluation: 15:00 - Subjective Subjective: SEEN ON RENAL F/U IN ICU SEEN ON HD . FEELS MUCH BETTER ON HD M W Objective - Vital Signs/Intake and Output Vital Signs (last 24 hours): Temp Pulse Resp BP Pulse Ox 98.4 F 72 20 135/82 98 07/17/16 19:18 07/17/16 19:18 07/17/16 19:18 07/17/16 19:18 07/17/16 19:18 Intake and Output: 07/17/16 07/18/16 18:59 06:59 Intake Total 720 Output Total 550 Balance 170 - Medications Medications: Current Medications Amlodipine Besylate (Norvasc) 10 mg PO DAILY [facility] Last Admin: 07/17/16 17:23 Dose: 10 mg Clonidine HCl (Catapres) 0.2 mg PO BID [facility] Last Admin: 07/17/16 17:22 Dose: 0.2 mg Ergocalciferol (Drisdol 50,000 Intl Units Cap) 1 cap PO Q7D [facility] Last Admin: 07/15/16 09:15 Dose: 1 cap Labetalol HCl (Trandate) 200 mg PO BID [facility] Last Admin: 07/17/16 17:20 Dose: 200 mg Labetalol HCl (Trandate) 20 mg IVP Q6H PRN PRN Reason: SBP > 140 Last Admin: 07/15/16 06:07 Dose: 20 mg Sevelamer Carbonate (Renvela) 0.8 gm PO TIDWM [facility] Last Admin: 07/17/16 17:20 Dose: 0.8 gm Vitamin B Complex/Vit C/Folic Acid (Nephro-Rickie) 1 tab PO DAILY [facility] Last Admin: 07/17/16 17:23 Dose: 1 tab - Labs Labs: 07/17/16 04:25 07/17/16 04:25 PT 11.9 Seconds (9.8-13.1) 07/13/16 22:18 INR 1.1 (0.9-1.2) 07/13/16 22:18 APTT 31.9 Seconds (25.6-37.1) 07/13/16 22:18 Assessment and Plan - Assessment and Plan (Free Text) Assessment: ESRD ON HD M W F .. TO BE C/O ANEMIA OF CKD .. ON EPO .. NEEDS BLOOD TRANSFUSION C/O CURRENT MEDS
[2016-07-18 06:53] LABS: HEMATOCRIT 25.1 % (35.0-51.0); MEAN CELL VOLUME 88.8 fl (80.0-94.0); MEAN CORPUSCULAR HGB CONC 32.7 g/dL (33.0-37.0); RED CELL DISTRIBUTION WIDTH 14.1 % (11.5-14.5); WHITE BLOOD COUNT 8.8 K/uL (4.8-10.8)
[2016-07-18 07:33] LABS: CALCIUM 7.3 mg/dL (8.4-10.2); POTASSIUM 3.6 MMOL/L (3.6-5.0)
[2016-07-18 08:02] VITALS: RESP 18
[2016-07-18] MEDS: Sevelamer Carb 0.8 gm/Packet PO SCH ×2 (09:00→12:10)
[2016-07-18] MEDS: Multivitamin Vitamin B Complex (Nephro-Vite) Tab PO SCH (09:44)
--- NOTE | 2016-07-18 09:51 | CP.PCM.PN ---
Objective - Vital Signs/Intake and Output Vital Signs (last 24 hours): Temp Pulse Resp BP Pulse Ox 98.7 F 79 18 130/82 99 07/18/16 08:01 07/18/16 09:45 07/18/16 08:01 07/18/16 09:45 07/18/16 08:01 - Medications Medications: Current Medications Amlodipine Besylate (Norvasc) 10 mg PO DAILY [facility] Last Admin: 07/18/16 09:44 Dose: 10 mg Clonidine HCl (Catapres) 0.2 mg PO BID [facility] Last Admin: 07/18/16 09:43 Dose: 0.2 mg Ergocalciferol (Drisdol 50,000 Intl Units Cap) 1 cap PO Q7D [facility] Last Admin: 07/15/16 09:15 Dose: 1 cap Labetalol HCl (Trandate) 200 mg PO BID [facility] Last Admin: 07/18/16 09:45 Dose: 200 mg Labetalol HCl (Trandate) 20 mg IVP Q6H PRN PRN Reason: SBP > 140 Last Admin: 07/15/16 06:07 Dose: 20 mg Sevelamer Carbonate (Renvela) 0.8 gm PO TIDWM [facility] Last Admin: 07/18/16 09:00 Dose: 0.8 gm Vitamin B Complex/Vit C/Folic Acid (Nephro-Rickie) 1 tab PO DAILY [facility] Last Admin: 07/18/16 09:44 Dose: 1 tab - Labs Labs: 07/18/16 05:45 07/18/16 05:45 PT 11.9 Seconds (9.8-13.1) 07/13/16 22:18 INR 1.1 (0.9-1.2) 07/13/16 22:18 APTT 31.9 Seconds (25.6-37.1) 07/13/16 22:18
[2016-07-18 12:11] VITALS: O2SAT 98
--- NOTE | 2016-07-18 15:13 | CP.PCM.DIS ---
Provider - Provider Date of Admission: 07/13/16 23:52 Attending physician: Francisco Egan Consults: Nephrology - Dr Mclean Time Spent in preparation of Discharge (in minutes): 35 Diagnosis - Discharge Diagnosis (1) ESRD (end stage renal disease) on dialysis Status: Acute (2) Epistaxis Status: Acute (3) Hypertensive emergency Status: Acute (4) Anemia in chronic kidney disease (CKD) Status: Chronic Hospital Course - Lab Results Lab Results: Most Recent Lab Values WBC 8.8 K/uL (4.8-10.8) 07/18/16 05:45 RBC 2.83 Mil/uL (4.40-5.90) L 07/18/16 05:45 Hgb 8.2 g/dL (12.0-18.0) L 07/18/16 05:45 Hct 25.1 % (35.0-51.0) L 07/18/16 05:45 MCV 88.8 fl (80.0-94.0) 07/18/16 05:45 MCH 29.0 pg (27.0-31.0) 07/18/16 05:45 MCHC 32.7 g/dL (33.0-37.0) L 07/18/16 05:45 RDW 14.1 % (11.5-14.5) 07/18/16 05:45 Plt Count 177 K/uL (130-400) 07/18/16 05:45 MPV 10.1 fl (7.2-11.7) 07/13/16 22:18 Neut % (Auto) 77.5 % (50.0-75.0) H 07/13/16 22:18 Lymph % (Auto) 10.9 % (20.0-40.0) L 07/13/16 22:18 Adams % (Auto) 9.8 % (0.0-10.0) 07/13/16 22:18 Eos % (Auto) 1.1 % (0.0-4.0) 07/13/16 22:18 Baso % (Auto) 0.7 % (0.0-2.0) 07/13/16 22:18 Neut # 6.6 K/uL (1.8-7.0) 07/13/16 22:18 Lymph # 0.9 K/uL (1.0-4.3) L 07/13/16 22:18 Adams # 0.8 K/uL (0.0-0.8) 07/13/16 22:18 Eos # 0.1 K/uL (0.0-0.7) 07/13/16 22:18 Baso # 0.1 K/uL (0.0-0.2) 07/13/16 22:18 PT 11.9 Seconds (9.8-13.1) 07/13/16 22:18 INR 1.1 (0.9-1.2) 07/13/16 22:18 APTT 31.9 Seconds (25.6-37.1) 07/13/16 22:18 pCO2 16 mm/Hg (35-45) L* 07/13/16 22:48 pO2 76 mm/Hg (30-55) H 07/14/16 04:50 HCO3 8.3 mmol/L (21-28) L* 07/13/16 22:48 ABG pH 7.15 (7.35-7.45) L* 07/13/16 22:48 ABG Total CO2 6.1 mmol/L (22-28) L 07/13/16 22:48 ABG O2 Saturation 99.2 % (95-98) H 07/13/16 22:48 ABG O2 Content 11.6 ML/dL (15-23) L 07/13/16 22:48 ABG Base Excess -21.3 mmol/L (-2.0-3.0) L 07/13/16 22:48 ABG Hemoglobin 8.4 g/dL (11.7-17.4) L 07/13/16 22:48 ABG Carboxyhemoglobin 1.0 % (0.5-1.5) 07/13/16 22:48 POC ABG HHb (Measured) 0.8 % (0.0-5.0) 07/13/16 22:48 ABG Methemoglobin 2.9 % (0.0-3.0) 07/13/16 22:48 ABG O2 Capacity 11.7 mL/dL (16-24) L 07/13/16 22:48 Reji Test Yes 07/13/16 22:48 VBG pH 7.14 (7.32-7.43) L* 07/14/16 04:50 VBG pCO2 20 mmHg (40-60) L 07/14/16 04:50 VBG HCO3 8.9 mmol/L 07/14/16 04:50 VBG O2 Sat (Calc) 99.9 % (40-65) H 07/14/16 04:50 VBG Base Excess -20.3 mmol/L (0.0-2.0) L 07/14/16 04:50 A-a O2 Difference -29.0 mm/Hg 07/13/16 22:48 Hgb O2 Saturation 95.3 % (95.0-98.0) 07/13/16 22:48 FiO2 21.0 % 07/13/16 22:48 Blood Gas Comments 333 07/14/16 04:50 Crit Value Called To Jignesh olivares md 07/14/16 04:50 Crit Value Called By 15 07/13/16 22:48 Crit Value Read Back Y 07/14/16 04:50 Blood Gas Notified Time 455 07/14/16 04:50 Sodium 141 mmol/l (132-148) 07/18/16 05:45 Potassium 3.6 MMOL/L (3.6-5.0) 07/18/16 05:45 Chloride 103 mmol/L (98-107) 07/18/16 05:45 Carbon Dioxide 22 mmol/L (22-30) 07/18/16 05:45 Anion Gap 19 (10-20) 07/18/16 05:45 BUN 68 mg/dl (9-20) H 07/18/16 05:45 Creatinine 9.8 mg/dL (0.8-1.5) H* 07/18/16 05:45 Est GFR ( Amer) 7 07/18/16 05:45 Est GFR (Non-Af Amer) 6 07/18/16 05:45 POC Glucose (mg/dL) 217 mg/dL (65-110) H 07/15/16 11:12 Random Glucose 89 mg/dL (75-110) 07/18/16 05:45 Calcium 7.3 mg/dL (8.4-10.2) L 07/18/16 05:45 Iron 78 ug/dL (49-181) 07/14/16 05:05 TIBC 218 ug/dL (250-450) L 07/14/16 05:05 % Saturation 36 % (20-55) 07/14/16 05:05 Total Bilirubin 0.5 mg/dl (0.2-1.3) 07/15/16 05:30 Direct Bilirubin 0.4 mg/ml (0.0-0.4) 07/13/16 22:18 AST 20 U/L (17-59) 07/15/16 05:30 ALT 29 U/L (21-72) 07/15/16 05:30 Alkaline Phosphatase 40 U/L (38-126) 07/15/16 05:30 Troponin I 0.1100 ng/mL (0.00-0.120) 07/13/16 22:18 Total Protein 6.6 G/DL (6.3-8.2) 07/15/16 05:30 Albumin 3.7 g/dL (3.5-5.0) 07/15/16 05:30 Globulin 2.9 gm/dL (2.2-3.9) 07/15/16 05:30 Albumin/Globulin Ratio 1.3 (1.0-2.1) 07/15/16 05:30 Vitamin B12 507 pg/mL (239-931) 07/14/16 05:05 Folate 6.5 ng/mL 07/14/16 05:05 Urine Opiates Screen Negative (NEGATIVE) 07/14/16 07:20 Urine Methadone Screen Negative (NEGATIVE) 07/14/16 07:20 Ur Barbiturates Screen Negative (NEGATIVE) 07/14/16 07:20 Ur Phencyclidine Scrn Negative (NEGATIVE) 07/14/16 07:20 Ur Amphetamines Screen Negative (NEGATIVE) 07/14/16 07:20 U Benzodiazepines Scrn Negative (NEGATIVE) 07/14/16 07:20 U Oth Cocaine Metabols Negative (NEGATIVE) 07/14/16 07:20 U Cannabinoids Screen Negative (NEGATIVE) 07/14/16 07:20 Hepatitis A IgM Ab Negative (NEGATIVE) 07/14/16 04:30 Hep Bs Antigen Negative (NEGATIVE) 07/14/16 04:30 Hep B Core IgM Ab Negative (NEGATIVE) 07/14/16 04:30 Hepatitis C Antibody Negative (NEGATIVE) 07/14/16 04:30 Blood Type O POSITIVE 07/17/16 11:50 Blood Type Confirm O POSITIVE 07/14/16 06:16 Antibody Screen Negative 07/17/16 11:50 Crossmatch See Detail 07/17/16 11:50 BBK History Checked Patient has bt 07/17/16 11:50 - Hospital Course Hospital Course: 41 years old male with hx of HTN and CKD with left AV fistula placed 2 years prior, because of Chronic Kidney disease, comes with a 3 hour hx of bleeding from the right nares. In the ED his blood pressure was 210/102mmHg, BUN 154mg/dl and Creatinine 18, and he was Acidotic with HCO3 5. Patient admitted to ICU and started on HD . At present doing better, BP better controlled . Will continue outpt HD TIW. 1. End Stage Renal Disease Hx of CKD - worsened now requiring HD started on HD Outpt HD placement- [facility]Th[facility] Consulted Dr Cook 2. Hypertensive Urgency not compliant with mediations. Has not been taking his Po meds since he lost insurance 2 years ago BP better controlled Continue labetalol 200mg BID/ amlodipine 10mg daily/ Clonidine 2mg Po BID 3. Anemia of chronic kidney disease Hgb 7. Started on epopoetin Transfused 1 unit PRBC with HD 4. Metabolic Acidosis due to the Renal failure resolved was given Sodium Bicarbonate in ED and placed on the bicarb drip on HD 5.Epistaxis most likely secondary to elevated Blood pressure The right nostril has Packing in place - removed nasal pack - no bleeding noted BP control 6. Hypokalemia replace with PO KCl Nephrology to adjust the HD 7. DVT prophylaxis SCD. Heparin on hold because of the epistaxis and anemia Discharge Exam - Head Exam Head Exam: NORMAL INSPECTION, NORMOCEPHALIC - Eye Exam Eye Exam: EOMI, Normal appearance Pupil Exam: NORMAL ACCOMODATION - ENT Exam ENT Exam: Mucous Membranes Moist, Normal External Ear Exam - Neck Exam Neck exam: Full Rom, Normal Inspection - Respiratory Exam Respiratory Exam: NORMAL BREATHING PATTERN. absent: Wheezes, Respiratory Distress - Cardiovascular Exam Cardiovascular Exam: REGULAR RHYTHM, +S1, +S2 - GI/Abdominal Exam GI & Abdominal Exam: Normal Bowel Sounds, Soft. absent: Tenderness - Extremities Exam Extremities exam: full ROM, normal capillary refill, pedal pulses present - Back Exam Back exam: FULL ROM, NORMAL INSPECTION. absent: CVA tenderness (L), CVA tenderness (R), paraspinal tenderness - Neurological Exam Neurological exam: Alert, CN II-XII Intact, Normal Gait, Oriented x3, Reflexes Normal - Psychiatric Exam Psychiatric exam: Normal Affect, Normal Mood - Skin Skin Exam: Dry, Normal Color, Warm Discharge Plan - Discharge Medications Prescriptions: amLODIPine [Norvasc] 10 mg PO DAILY #30 tab cloNIDine [Catapres] 0.2 mg PO BID #60 tab Ergocalciferol [Drisdol 50,000 Intl Units Cap] 1 cap PO Q7D #4 cap Labetalol [Trandate] 200 mg PO BID #60 tab Vitamin B Complex/Vit C/Folic [Nephro-Rickie] 1 tab PO DAILY #30 tab - Follow Up Plan Condition: GOOD Disposition: HOME/ ROUTINE Additional Instructions: cont TIW dialysis - //Sat ff up [facility] in 2 wks Referrals: Jorge Luis Lassiter MD [Medical Doctor] -
[2016-07-18 15:57] VITALS: BP 122/76; PULSE 75; TEMP 98.4
== END 2016-07-18 16:19 | disposition home or self-care (01) | DRG 304 ==
LOC: H.ER 21:19 → H.ERHOLD 23:52 → H.ICU/CCU 07-14 08:10 → H.TEL 07-17 18:11
PROVIDERS: ADMIT Internal Medicine; ATTEND Internal Medicine
PROC: 5A1D60Z (ICD-10-PCS; principal; 2016-07-14)
PROC: 3E0234Z Introduction of Serum, Toxoid and Vaccine into Muscle, Percutaneous Approach (ICD-10-PCS; 2016-07-15)
PROC: 30233N1 Transfusion of Nonautologous Red Blood Cells into Peripheral Vein, Percutaneous Approach (ICD-10-PCS; 2016-07-17)
DX: I16.1 Hypertensive emergency (principal); N18.6 End stage renal disease; N17.9 Acute kidney failure, unspecified; E87.2 Acidosis; I42.9 Cardiomyopathy, unspecified; I12.0 Hypertensive chronic kidney disease with stage 5 chronic kidney disease or end stage renal disease; D63.1 Anemia in chronic kidney disease; E87.6 Hypokalemia; I16.0 Hypertensive urgency; Z99.2 Dependence on renal dialysis; J45.909 Unspecified asthma, uncomplicated; R04.0 Epistaxis; Z23 Encounter for immunization; Z91.14 Patient's other noncompliance with medication regimen; Z87.891 Personal history of nicotine dependence